=== PATIENT | male | born 1955 | race Caucasian/White ===

== ENCOUNTER 2017-08-04 15:56 | Emergency (ER) | payer OTHER ==
[~2017-08-04] VITALS: Ht 162.6 cm; Wt 76.7 kg
[2017-08-04 16:26] VITALS: Ht 162.6 cm; Wt 76.7 kg
[2017-08-04 17:48] VITALS: BP 122/77
== END 2017-08-04 18:32 | disposition home or self-care (01) ==
LOC: ED 15:56
DX: R33.9 Retention of urine, unspecified (principal); R10.30 Lower abdominal pain, unspecified